=== PATIENT | male | born 1985 | race Caucasian/White ===

== ENCOUNTER 2021-01-09 11:42 | Inpatient (IN) | payer OTHER ==
[2021-01-09 12:15] VITALS: BMI 27.3
[2021-01-09] MEDS ORDERED: MAGNESIUM CITRATE 300 ML BOTTLE PO PRN (17:04)
[2021-01-09] MEDS ORDERED: ACETAMINOPHEN 325 MG TABLET (FP) PO PRN (17:04)
[2021-01-09] MEDS ORDERED: NICOTINE POLACRILEX 4 MG GUM BC PRN (17:04)
[2021-01-09] MEDS ORDERED: MAGNESIUM HYDROX 2400MG/30ML ORAL SUSPENSION 30 ML CUP PO PRN (17:04)
[2021-01-09] MEDS ORDERED: LOPERAMIDE HCL 2 MG CAPSULE PO PRN (17:04)
[2021-01-09] MEDS ORDERED: P-EPHED 60MG/TRIPROLIDI 2.5MG TABLET PO PRN (17:04)
[2021-01-09] MEDS ORDERED: guaiFENesin 200 MG/10 ML 10 ML UNIT-DOSE CUPS PO PRN (17:04)
[2021-01-09] MEDS ORDERED: MAG HYDROX/AL HYDROX/SIMETH 30 ML UNIT-DOSE CUP PO PRN (17:04)
[2021-01-09] MEDS ORDERED: METHOCARBAMOL 500 MG TABLET PO PRN (17:09)
[2021-01-09] MEDS ORDERED: ALBUTEROL SO4 HFA INHALER IH PRN (17:09)
[2021-01-09] MEDS: NICOTINE 21 MG/24 HOURS TOPICAL PATCH TD SCH (18:59)
[2021-01-09] MEDS: hydrOXYzine PAMOATE 25 MG CAPSULE (FP) PO SCH ×2 (19:02→21:44)
[2021-01-09] MEDS: IBUPROFEN 400 MG TABLET (FP) PO PRN (19:02)
[2021-01-09] MEDS: LIDOCAINE 5% TOPICAL PATCH TP SCH (19:03)
[2021-01-09] MEDS: MELATONIN 5 MG TABLETS PO SCH (21:44)
[2021-01-09] MEDS: THIAMINE HCL 100 MG TABLET (FP) PO SCH (21:44)
[2021-01-09] MEDS: TOLNAFTATE 1% CREAM 15 GM TUBE TP SCH (21:46)
[2021-01-09] MEDS ORDERED: MASKS NR ONE (21:46)
[2021-01-09] MEDS: LIDOCAINE PATCH REMOVAL MC SCH (23:17)
[2021-01-10] MEDS: hydrOXYzine PAMOATE 25 MG CAPSULE (FP) PO SCH ×5 (06:39→22:45)
[2021-01-10] MEDS: LIDOCAINE 5% TOPICAL PATCH TP SCH (10:21)
[2021-01-10] MEDS: NICOTINE 21 MG/24 HOURS TOPICAL PATCH TD SCH (10:21)
[2021-01-10] MEDS: PRENATAL VITAMINS W/ FOLIC ACID TABLET (FP) PO SCH (10:21)
[2021-01-10] MEDS: TOLNAFTATE 1% CREAM 15 GM TUBE TP SCH ×2 (10:50→22:45)
[2021-01-10 12:09] LABS: HEMATOCRIT 45.8 % (35.4-49); HEMOGLOBIN 15.7 GM/dL (11.7-16.9); MCH 32.1 pg (25.7-33.7); MCHC 34.2 g/dl (32.0-35.9); MEAN CELL VOLUME 93.8 fl (80-96); MEAN PLT VOLUME 8.4 fl (7.5-11.1); PLATELET COUNT 205 K/MM3 (134-434); RBC 4.88 M/mm3 (4.00-5.60); RDW 14.5 % (11.9-15.9); WHITE BLOOD COUNT 6.3 K/mm3 (4.0-10.0)
[2021-01-10 12:10] LABS: ALBUMIN 3.8 g/dl (3.4-5.0)
[2021-01-10 12:11] LABS: BLOOD UREA NITROGEN 16.3 mg/dL (7-18)
[2021-01-10 12:13] LABS: CALCIUM 8.4 mg/dL (8.5-10.1)
[2021-01-10 12:16] LABS: BILIRUBIN,TOTAL 0.3 mg/dL (0.2-1)
[2021-01-10 12:17] LABS: CREATININE 0.9 mg/dL (0.55-1.3); TOT PROT 6.9 g/dl (6.4-8.2)
[2021-01-10 13:01] LABS: HIV INTERPRETATION NEGATIVE (NEGATIVE)
[2021-01-10 13:16] LABS: PH,URINE 6.5 (5.0-8.0); URINE APPEARANCE CLEAR; URINE BILIRUBIN NEGATIVE (NEGATIVE); URINE COLOR YELLOW; URINE GLUCOSE (UA) NEGATIVE (NEGATIVE); URINE KETONE NEGATIVE (NEGATIVE); URINE LEUK ESTERASE NEGATIVE (NEGATIVE); URINE NITRITE NEGATIVE (NEGATIVE); URINE PROTEIN NEGATIVE (NEGATIVE); URINE UROBILINOGEN 0.2 mg/dL (0.2-1.0)
[2021-01-10] MEDS: IBUPROFEN 400 MG TABLET (FP) PO PRN (18:34)
[2021-01-10] MEDS: LIDOCAINE PATCH REMOVAL MC SCH (22:40)
[2021-01-10] MEDS: THIAMINE HCL 100 MG TABLET (FP) PO SCH (22:45)
[2021-01-10] MEDS: MELATONIN 5 MG TABLETS PO SCH (22:45)
[2021-01-11] MEDS: hydrOXYzine PAMOATE 25 MG CAPSULE (FP) PO SCH ×5 (07:06→22:50)
[2021-01-11] MEDS: NICOTINE 21 MG/24 HOURS TOPICAL PATCH TD SCH (10:56)
[2021-01-11] MEDS: LIDOCAINE 5% TOPICAL PATCH TP SCH (10:56)
[2021-01-11] MEDS: PRENATAL VITAMINS W/ FOLIC ACID TABLET (FP) PO SCH (10:57)
[2021-01-11] MEDS: TOLNAFTATE 1% CREAM 15 GM TUBE TP SCH ×2 (10:57→22:50)
[2021-01-11] MEDS: IBUPROFEN 400 MG TABLET (FP) PO PRN (19:41)
[2021-01-11] MEDS: LIDOCAINE PATCH REMOVAL MC SCH (22:35)
[2021-01-11] MEDS: MELATONIN 5 MG TABLETS PO SCH (22:50)
[2021-01-11] MEDS: THIAMINE HCL 100 MG TABLET (FP) PO SCH (22:50)
[2021-01-12] MEDS: hydrOXYzine PAMOATE 25 MG CAPSULE (FP) PO SCH ×5 (06:37→21:11)
[2021-01-12 07:04] VITALS: BP 133/90; PULSE 78; TEMP 98
[2021-01-12] MEDS: LIDOCAINE 5% TOPICAL PATCH TP SCH (10:09)
[2021-01-12] MEDS: NICOTINE 21 MG/24 HOURS TOPICAL PATCH TD SCH (10:09)
[2021-01-12] MEDS: PRENATAL VITAMINS W/ FOLIC ACID TABLET (FP) PO SCH (10:09)
[2021-01-12] MEDS: TOLNAFTATE 1% CREAM 15 GM TUBE TP SCH ×2 (10:10→21:11)
[2021-01-12] MEDS ORDERED: PT OWN MED DRAWER 7, Y5N ONE (10:37)
[2021-01-12] MEDS ORDERED: MASKS NR ONE (10:38)
[2021-01-12] MEDS: MELATONIN 5 MG TABLETS PO SCH (21:11)
[2021-01-12] MEDS: THIAMINE HCL 100 MG TABLET (FP) PO SCH (21:11)
[2021-01-12] MEDS: LIDOCAINE PATCH REMOVAL MC SCH (21:11)
[2021-01-12] MEDS: IBUPROFEN 400 MG TABLET (FP) PO PRN (21:12)
[2021-01-13] MEDS: hydrOXYzine PAMOATE 25 MG CAPSULE (FP) PO SCH ×2 (06:44→10:42)
[2021-01-13 10:11] LABS: SARS-CoV-2 NAA Not Detected (Not Detected)
[2021-01-13] MEDS: TOLNAFTATE 1% CREAM 15 GM TUBE TP SCH (10:42)
[2021-01-13] MEDS: PRENATAL VITAMINS W/ FOLIC ACID TABLET (FP) PO SCH (10:42)
[2021-01-13] MEDS: NICOTINE 21 MG/24 HOURS TOPICAL PATCH TD SCH (10:42)
[2021-01-13] MEDS: LIDOCAINE 5% TOPICAL PATCH TP SCH (10:42)
== END 2021-01-13 13:05 | disposition left against medical advice (07) | DRG 770 ==
LOC: YASAS 11:42 → Y3W 17:39
PROVIDERS: ADMIT Allergy & Immunology; ATTEND Allergy & Immunology
PROC: HZ42ZZZ Group Counseling for Substance Abuse Treatment, Cognitive-Behavioral (ICD-10-PCS; principal; 2021-01-09)
DX: F10.20 Alcohol dependence, uncomplicated (principal); F16.20 Hallucinogen dependence, uncomplicated; F12.20 Cannabis dependence, uncomplicated; F17.210 Nicotine dependence, cigarettes, uncomplicated; F19.282 Other psychoactive substance dependence with psychoactive substance-induced sleep disorder; F19.24 Other psychoactive substance dependence with psychoactive substance-induced mood disorder; F60.2 Antisocial personality disorder; F31.9 Bipolar disorder, unspecified; J45.909 Unspecified asthma, uncomplicated; M54.5 Low back pain; G89.29 Other chronic pain; B35.3 Tinea pedis; S29.011A Strain of muscle and tendon of front wall of thorax, initial encounter; X58.XXXA Exposure to other specified factors, initial encounter; Y92.9 Unspecified place or not applicable; Y93.9 Activity, unspecified; Z91.5 Personal history of self-harm
CPT/HCPCS: 36415; 80053; 81003; 85027; 86780; 87389; 93005; 93010; C9803; U0003; U0005